=== PATIENT | male | born 1940 | race Caucasian/White ===

== ENCOUNTER 2024-01-25 09:29 | Day surgery (SDC) | payer MEDICARE, OTHER ==
[~2024-01-25] VITALS: Ht 175.4 cm; Wt 85.9 kg
[2024-01-25] VITALS (8 sets, daily range): BP systolic 129–147; BP diastolic 73–100; PULSE 73–85; TEMP 98.4
[~2024-01-25 09:29] MED LIST: LR 1,000 ML IV SCH
[2024-01-25] MEDS ORDERED: NS Flush 10 ML SYRINGE PRN ICA (10:15)
[2024-01-25 10:21] LABS: HEMATOCRIT 46.4 % (42.0-52.0); HEMOGLOBIN 15.5 g/dl (13.5-18.0); MEAN CELL VOLUME 92 fl (80.0-100.0); MEAN CORPUSCULAR HEMOGLOBIN 31 pg (27-31); MEAN CORPUSCULAR HGB CONC 33 g/dl (33.0-37.0); MEAN PLATELET VOLUME 8.7 fl (7.4-10.4); PLATELET COUNT 216 K/mm3 (130-400); RED BLOOD COUNT 5.03 M/mm3 (4.20-5.60); REDCELL DISTRIBUTION WIDTH-CV 12.8 % (11.5-14.5)
[2024-01-25 10:30] LABS: INR 1.3 (0.8-3.0); PROTHROMBIN TIME 14.3 SECONDS (9.7-12.8)
[2024-01-25] MEDS ORDERED: LOTRIMIN15 GM TOP (10:30)
[2024-01-25] MEDS ORDERED: ZESTRIL 5MG5 MG PO (10:30)
[2024-01-25] MEDS ORDERED: ELIQUIS 5MG PO (10:30)
[2024-01-25] MEDS ORDERED: TOPROL XL 25MG25 MG PO (10:31)
[2024-01-25] MEDS ORDERED: MULTI VITAMINS1 TAB PO (10:31)
[2024-01-25 10:33] LABS: PARTIAL THROMBOPLASTIN TIME 34.1 SECONDS (26.0-37.0)
[2024-01-25 10:58] LABS: CALCIUM 9.2 mg/dL (8.4-10.2); CREATININE, serum 0.83 mg/dL (0.72-1.25); MAGNESIUM 1.8 mg/dL (1.6-2.6); POTASSIUM 4.1 mEq/L (3.5-4.5)
[2024-01-25 11:18] LABS: THYROID STIMULATING HORMONE 2.107 uIU/mL (0.350-4.940)
--- NOTE | 2024-01-25 12:15 | NUR ---
Bedside report completed with Steffi RN. Call light within reach, last set of vitals reviewed, fluids infusing at 30 ml/hr. Steffi Rn asked how much propofol, unable to ascertain from anesthesia note, patient RASS 0 JOHANNE 10 for 20 minutes.
--- NOTE | 2024-01-25 12:17 | NUR ---
Report from [email or web address] awake and alert.
[2024-01-25] MEDS ORDERED: PACERONE400 MG PO (13:29)
--- NOTE | 2024-01-25 13:56 | NUR ---
Discharge instructions given to pt.Pt verbalizes understanding.
--- NOTE | 2024-01-25 14:15 | NUR ---
Pt escorted out via wheelchair by this nruse.
[2024-01-25] MEDS ORDERED: NS Flush 10 ML SYRINGE BID ICA SCH (21:00)
== END 2024-01-26 09:00 ==
LOC: COL.CAR 09:29
PROVIDERS: Internal Medicine Cardiovascular Disease
DX: I48.19 Other persistent atrial fibrillation (principal); I45.6 Pre-excitation syndrome; I10 Essential (primary) hypertension; Z79.01 Long term (current) use of anticoagulants
CPT/HCPCS: J0282; J2704; J7060; J7120